=== PATIENT | female | born 1955 | race Caucasian/White ===

== ENCOUNTER 2022-07-10 07:59 | Day surgery (SDC) | payer MEDICARE, BC, SELFPAY ==
[2022-07-10] VITALS (12 sets, daily range): BP systolic 118–156; BP diastolic 62–98; PULSE 65–81; RESP 12–18; TEMP 36.1–36.7; O2SAT 95–98; BMI 24.8
--- NOTE | 2022-07-10 08:34 | SUR.PREOP ---
Patient provided home covid negative results to RN.
[2022-07-10] MEDS: LACTATED RINGERS 1000 ML 1,000 ML 100 ML IV (08:35)
[2022-07-10] MEDS: SODIUM CHLORIDE 0.9 % (FLUSH) 10 ML SYRINGE IVF (08:48)
[2022-07-10] MEDS: CLINDAMYCIN 900 MG/50 ML-D5W IVPB (09:30)
[2022-07-10] MEDS: BUPIVACAINE 0.25% 30 ML INJECTION (10:14)
[2022-07-10] MEDS: BUPIVACAINE LIPOSOME 133 MG/10 ML INJ INFILTRATI (10:18)
--- NOTE | 2022-07-10 10:18 | P.GSOP_ITS ---
Operative Note Date of procedure: 07/10/22 Pre-op diagnosis: Perianal skin tags and prominent internal hemorrhoidal tissue Post-op diagnosis: Same Type of Procedure: Three quadrant hemorrhoidectomy Indications: Patient is a 67-year-old female who was seen in clinic for symptomatic perianal skin tacks. Please see consultation note for full discussion. Risks and b enefits of operative intervention were discussed at length with the patient. Risks included, but were not limited to: Bleeding, infection, risk of damage to surrounding structures, the rare risk of change in fecal or gas continence due to injury of associated muscles and the possibility of creating new skin tags as the area heals requiring additional procedures. All questions and concerns were addressed with patient agreeing to proceed. Procedure Description: The patient was brought to the Operating Room and a formal timeout for patient safety was performed in accordance with hospital protocol, thereby correctly matching this patient with their diagnosis and intended procedure. A spinal anesthetic was administered, and the patient was then transferred to the Operating Room table, placed in the prone jackknife position with appropriate bumps and padding. Care was taken to ensure the genitalia and breasts were properly positioned on the hip and chest rolls, respectively. The shoulders and arms were positioned with care to protect the brachial plexus. The buttocks were taped laterally. A sterile prep and drape was done in the usual fashion. External examination, digital rectal examination, and anoscopic examination were all done and revealed multiple large perianal skin tags of the left lateral posterior,, left lateral anterior, and right posterior lateral anal canal with associated residual internal hemorrhoidal tissue. Based on this assessment, plans were made for excision of the prominent skin tags and associated internal hemorrhoidal tissue to encompass the aforementioned aspects of the anal canal. Attention was initially directed to the largest area of involvement and then went to the progressively smaller areas and all were handled in the same fashion. An elliptical incision was made with a needle tip electrocautery from the anoderm up into the anal canal just above the dentate line. Careful dissection of the hemorrhoid complex was done in the plane between the internal anal sphincter and the submucosal vascular plexus up to just above the dentate line in each quadrant described above. Having established the proper plane, the hemorrhoidal tissue was then excised with the Ligasure device and sent to Pathology for analysis. Care was taken to preserve mucosa for a tension-free closure. The internal sphincter fibers were visualized at the base of the wound and were intact. The wound was closed in a running locked manner starting at the apex (proximal aspect of elliptical excision) with 4-0 chromic suture, coming out to the anoderm and then running back up in a simple fashion and tying down at the apex. Hemostasis was excellent. A pudendal nerve block was performed with a mixture of 0.5% Marcaine and explore all. The local area was also infiltrated with this long-acting anesthetic. The patient tolerated procedure well. There were no apparent complications. Instrument, sponge, and needle counts were correct at the end of the case. Findings: 3 large perianal skin tacks with associated internal hemorrhoidal tissue, excised and primarily closed. Anesthesia: MAC and spinal Surgeon: Destini Diaz MD Estimated blood loss (mL): 5 Specimen: Other Additional Specimen Information: Perianal skin tags Condition: stable Disposition: same day
--- NOTE | 2022-07-10 10:21 | W.ANESCHARGE ---
Anesthesia Charges Start Date/Time Anesthesia Start Date: 07/10/22 Anesthesia Start Time: 09:20 Stop Date/Time Anesthesia Stop Date: 07/10/22 Anesthesia Stop Time: 10:23
--- NOTE | 2022-07-10 10:32 | W.ANESCHARGE ---
Anesthesia Charges Start Date/Time Anesthesia Start Date: 07/10/22 Anesthesia Start Time: 09:20 Stop Date/Time Anesthesia Stop Date: 07/10/22 Anesthesia Stop Time: 10:23
== END 2022-07-10 11:51 | disposition home or self-care (01) ==
PROVIDERS: PCP Family Medicine; Visit Provider Surgery
PROC: (CPT 46260; principal; 2022-07-10 09:15)
DX: K64.8 Other hemorrhoids (principal); K64.4 Residual hemorrhoidal skin tags
CPT/HCPCS: 46260; 400; 88304; 902; C9290; J2250; J2400; J2704; J3010; J3490; J7120; S0077